=== PATIENT | female | born 2000 | race Caucasian/White ===

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

== ENCOUNTER 2025-07-19 07:36 | Inpatient (IN) ==
--- NOTE | 2025-07-19 07:55 | History & Physical Report ---
Date of Service July 19, 2025 Assessment & Plan (1) Encounter for induction of labor: (2) IUGR (intrauterine growth restriction) affecting care of mother: (3) Carrier of group B Streptococcus: (4) Current every day vaping: (5) Chlamydia infection affecting : Plan Zenobia is a 25 y/o at 38w with NETTA 08/02/25 as determined by LMP who presents today for induction of labor. complicated by vaping use, chlamydia infection (treated) GBS(+), IUGR, and polyhydramnios. Patient does have a history of rapid first labor/delivery 2-3 hours. pitocin ordered allison balloon epidural when desired AROM when indicated IV fluids continuous FHT monitoring - category I penicillin for GBS(+) anticipate . Admission and Anticipated Discharge Date Admission Date: July 19, 2025 History of Present Illness Chief Complaint: induction of labor Primary Care Provider: NO PCP Zenobia is a 25 y/o at 38w with NETTA 08/02/25 as determined by LMP who presents today for induction of labor. complicated by vaping use, chlamydia infection (treated) GBS(+), IUGR, and polyhydramnios. Patient does have a history of rapid first labor/delivery 2-3 hours. Endorses positive movement Denies contractions, leakage of fluid, and vaginal bleeding External FHT monitors used - category I tracing. Moderate variability. OB Labs: Blood Type O Positive 12/31/24 Antibody Screen NEGATIVE 12/31/24 Hgb 11.4 g/dl (12.0-16.0) L 04/29/25 Hct 33.6 % (37.0-47.0) L 04/29/25 MCV 88.2 fL (80.0-100.0) 12/31/24 Plt Count 171 K/uL (130-400) 12/31/24 Rubella IgG Antibody Immune (Immune) 12/31/24 RPR Nonreactive (Nonreactive) 06/30/20 Treponema pallidum Ab Negative (Negative) 04/29/25 Hep Bs Antigen Negative (Negative) 12/31/24 Hepatitis C Antibody Negative (Negative) 12/31/24 HIV 1&2 Ab/P24 Ag 4thGn Negative (Negative) 12/31/24 Glucose 1 Hr 50 gm 86 mg/dl (70-130) 04/29/25 OB Optional Labs: Chlamydia trachomatis RNA Not Detected (NotDetected) 12/31/24 Neisseria gonorrhoeae RNA Not Detected (NotDetected) 12/31/24 Labs Reviewed: declined genetics/cf/sma/afp Allergies Allergy/AdvReac Type Severity Reaction Status Date / Time No Known Allergies Allergy Verified 07/18/25 14:38 Home Medications Medication Instructions Recorded Confirmed Type PNV [id number] 1 tab PO UD 12/17/24 07/18/25 History [ Gummies] Patient History Medical History Varicella vaccination Surgical History History of gynecologic surgery hymenectomy [place] teeth extracted S/P tonsillectomy and adenoidectomy Family History Father Heart murmur Grandmother (Paternal) Heart disease Breast cancer Denies family history of Ovarian cancer Colorectal cancer Social History (Updated 07/19/25 @ 07:54 by Alice Laguna RN) Smoking Status: Never smoker Tobacco Type: E-cigarettes / Vaping Second Hand Exposure: No; Do You Dip or Chew Tobacco: No; Hx Alcohol Use: No Hx Substance Use: No Preferred Language: Armenian Communication Ability: Effective Cullet Crusher Required: No Beliefs That Will Affect Care: None marital status: Single marital status details: Yuri Valdivia(22) [phone] FO Current Living Situation: Family and Significant Other Current Living Situation Comment: Lives with daughter, no pets. current occupational status: employed current occupation: [employer] Feels Safe at Home: Yes Diet: regular Assistive Devices: Glasses Review of Systems Denies fever, chills, sweats Denies shortness of breath, difficulty breathing, chest pain, palpitations, chest pressure. Denies breast pain. Denies dysuria. Denies headache or changes in vision. Physical Exam Physical Exam: General: Alert, oriented. No acute distress. Cardiac: Regular rate and rhythm, no murmurs/rubs/gallops. Respiratory: Clear to auscultation bilaterally a/p, no wheezes/rales/rhonchi. No increased work of breathing. Symmetrical chest rise. No respiratory distress. Abdomen: soft, gravid, normal to inspection Lower Extremities: No lower extremity edema or swelling. No deep calf pain. Wesley's negative bilaterally
[2025-07-19] MEDS ORDERED: OXYTOCIN 30 UNITS/NSS 30 UNITS/500 ML BAG IV PRN ×2 (08:01→16:26)
[2025-07-19] MEDS ORDERED: LIDOCAINE 1% LOCAL 20 ML VIAL INFIL PRN (08:01)
[2025-07-19] MEDS: PENICILLIN GK 6 MU in DEXTROSE 5% 250 ML IV STA (08:43)
[2025-07-19] MEDS: LACTATED RINGER'S 1,000 ML IV PRN (08:43)
[2025-07-19] MEDS: OXYTOCIN 30 UNITS/NSS 30 UNITS/500 ML BAG IV PRN (08:43)
[2025-07-19 09:19] LABS: Hematocrit (blood only) 34.7 % (37.0-47.0); Hemoglobin 12.1 g/dL (12.0-16.0); Mean Corpuscular Hemoglobin 28.5 pg (25.0-34.0); Mean Corpuscular Volume 81.8 fL (80.0-100.0); Platelet Count 250 K/uL (130-400); RDW Standard Deviation 36.1 fL (36.4-46.3); Red Blood Count 4.24 M/uL (4.20-5.40); White Blood Count 7.42 K/ul (4.8-10.8)
[2025-07-19] MEDS: PENICILLIN GK 3 MU in DEXTROSE 5% 100 ML IV SCH (12:29)
--- NOTE | 2025-07-19 16:23 | Delivery Summary ---
Vaginal Delivery Summary Date of Service July 19, 2025 Vaginal Delivery Summary Delivery note the patient was induced for intrauterine growth restriction at 38 weeks initially Sharma bulb was placed in her cervix using sterile technique inserting through the os and inflating to 30 cc. The balloon fell out about 4 hours later penicillin had been started for GBS prophylaxis at this stage artificial rupture of membranes for clear fluid at 4 cm there were some very deep variable decelerations noted soon afterwards but the patient rapidly progressed. We implemented a IV fluid bolus oxygen by facemask and then even a amnio infusion fortunately the cervix dilated quickly and she was able to push over primarily 1 or 2 contractions delivering the baby in occiput anterior position at this stage after delivery of the head there was a double nuchal cord this was loose and then passed over the baby's head gentle traction on the baby live vigorous male . Cord clamped and cut cord gases obtained cord blood obtained placenta removed by gentle traction and expressed IV Pitocin started there was no tearing QBL was 50 mL sponge and instrument counts correct [facility] Vaginal Delivery Charge Delivery Type Details:
[2025-07-19] MEDS ORDERED: HYDROCORTISONE ACETATE 25 MG SUPP PR PRN (16:26)
[2025-07-19] MEDS ORDERED: BENZOCAINE 20% SPRY 85 APPLN/85 GM CAN EXT PRN (16:26)
[2025-07-19 16:39] LABS: Base Excess Cord Arterial Bld -4.4 mEq/L (-9-1.8); CO2 Cord Arterial Blood 39 mmHg (39.1-73.5); HCO3 Cord Arterial Blood 21 mmol/L (19.7-28.5); Oxygen Sat Cord Arterial Blood < 60.0 % (<60); PO2 Cord Arterial Blood 23 mmHg (4.1-31.7); pH Cord Arterial Blood 7.34 (7.1-7.38)
[2025-07-19 16:40] LABS: Base Excess Cord Venous Blood -3.4 mEq/L (-7.7-1.9); Cord Venous Blood PO2 23 mmHg (14.1-43.3); O2 Saturation Cord Venous Bld < 60.0 % (<68)
[2025-07-19] MEDS: DIPHTHER/TETAN/PERTUS Vaccine (Tdap, Adol/Adult) 0.5mL IM ONE (17:00)
[2025-07-19] MEDS: DOCUSATE SODIUM 100 MG CAP PO SCH (20:09)
[2025-07-20] MEDS: IBUPROFEN 600 MG TAB PO PRN (04:10)
--- NOTE | 2025-07-20 06:38 | Obstetrical Progress Note ---
Date of Service July 20, 2025 Assessment & Plan (1) Encounter for induction of labor: (2) IUGR (intrauterine growth restriction) affecting care of mother: (3) Carrier of group B Streptococcus: Plan 25 y/o ppd #1 s/p . complicated by daily vape use, IUGR, GBS(+). Feels well today. Vital signs stable Continue post- care Encourage ambulation and Pain controlled with ibuprofen Hgb stable Consider home discharge today pending baby discharge status due to IUGR. follow up with Dr. Trivedi in 6 weeks. Admission and Anticipated Discharge Date Admission Date: July 19, 2025 Supervising Physician Co-Signing Physician Notes Resident Physician Supervision Note: I interviewed and examined the patient. Discussed with Dr. Gamboa and agree with findings and plan as documented in the note. Any exceptions or clarifications are listed here: [None] Documented By: Sandoval Trivedi MD, FACOG Subjective 25 y/o ppd #1 s/p . complicated by daily vape use, IUGR, GBS(+). Feeling well this morning. No issues overnight. No acute concerns. Ambulation: ambulating normally Voiding: no voiding problems Passing Gas:: Yes Diet Tolerance:: regular diet Lochia:: Small Feeding Type:: breast Current Pain Level: minimal Resting comfortably this AM in NAD. Denies BURGER, CP, SOB, N/V/D, LE pain/swelling. Review of Systems Review of Systems: as above Physical Exam Physical Exam: General: patient resting comfortably, NAD, non-toxic in appearance, A&Ox4, answers questions appropriately. Skin: warm, dry, intact HEENT: atraumatic, normocephalic, anicteric sclera, conjunctiva without inje ction, moist mucus membranes. Heart: clinically well perfused Lungs: equal rise & fall of chest, normal work of breathing, no respiratory distress Abd: +BS, soft, NT/ND, uterine fundus firm at umbilicus Ext: no LE edema or deep calf pain, Wesley's neg. Neuro: no focal neurologic deficits, moving all extremities. Results & Data Vital Signs (Past 12 Hours) Vital Signs Temp Pulse Resp BP Pulse Ox O2 Del Method 07/20/25 04:05 36.8 C 69 18 131/83 98 Room Air 07/20/25 00:00 36.5 C 71 18 127/85 98 Room Air 07/19/25 19:15 36.8 C 85 18 120/82 98 Room Air
[2025-07-20 07:37] VITALS: RESP 16
[2025-07-20 08:42] LABS: Hematocrit (blood only) 32.7 % (37.0-47.0); Hemoglobin 11.1 g/dL (12.0-16.0); Mean Corpuscular Hemoglobin 27.8 pg (25.0-34.0); Mean Corpuscular Volume 81.8 fL (80.0-100.0); Platelet Count 237 K/uL (130-400); RDW Standard Deviation 36.2 fL (36.4-46.3); Red Blood Count 4.00 M/uL (4.20-5.40); White Blood Count 9.32 K/ul (4.8-10.8)
[2025-07-20] MEDS: PRENATAL VITAMIN 1 TAB PO SCH (09:00)
[2025-07-21 00:02] VITALS: O2SAT 98
--- NOTE | 2025-07-21 06:19 | Obstetrical Progress Note ---
Date of Service July 21, 2025 Assessment & Plan (1) Encounter for induction of labor: (2) IUGR (intrauterine growth restriction) affecting care of mother: (3) Carrier of group B Streptococcus: Plan 25 y/o ppd #2 s/p . complicated by daily vape use, IUGR, GBS(+). Feels well today. Vital signs stable Continue post- care Encourage ambulation and Pain controlled with ibuprofen Hgb stable Anticipate home discharge today follow up with Dr. Trivedi in 6 weeks. Admission and Anticipated Discharge Date Admission Date: July 19, 2025 Supervising Physician Co-Signing Physician Notes Resident Physician Supervision Note: I interviewed and examined the patient. Discussed with Dr. Gamboa and agree with findings and plan as documented in the note. Any exceptions or clarifications are listed here: Pt is PPD2 from , doing well, meeting milestones. . VS wnl. Uterus firm at U-1. Plan for DC home today with 6w PPV. Documented By: Tasha Hurt MD Subjective 25 y/o ppd #2 s/p . complicated by daily vape use, IUGR, GBS(+). Feeling well this morning. No issues overnight. No acute concerns. Ambulation: ambulating normally Voiding: no voiding problems Passing Gas:: Yes Diet Tolerance:: regular diet Lochia:: Small Feeding Type:: breast Current Pain Level: minimal Resting comfortably this AM in NAD. Denies BURGER, CP, SOB, N/V/D, LE pain/swelling. Review of Systems Review of Systems: as above Physical Exam Physical Exam: General: patient resting comfortably, NAD, non-toxic in appearance, A&Ox4, answers questions appropriately. Skin: warm, dry, intact HEENT: atraumatic, normocephalic, anicteric sclera, conjunctiva without injection, moist mucus membranes. Heart: clinically well perfused Lungs: equal rise & fall of chest, normal work of breathing, no respiratory distress Abd: +BS, soft, NT/ND, uterine fundus firm at umbilicus Ext: no LE edema or deep calf pain, Wesley's neg. Neuro: no focal neurologic deficits, moving all extremities. Results & Data Vital Signs (Past 12 Hours) Vital Signs Temp Pulse Resp BP Pulse Ox O2 Del Method 07/21/25 00:00 36.4 C L 64 16 126/82 98 Room Air 07/20/25 20:45 36.9 C 75 16 126/84 99 Room Air
[2025-07-21 06:25] LABS: Hematocrit (blood only) 30.8 % (37.0-47.0); Hemoglobin 10.3 g/dL (12.0-16.0)
[2025-07-21 08:09] VITALS: BP 134/84; TEMP 98.1
[2025-07-21] MEDS: ACETAMINOPHEN 325 MG TAB PO PRN (08:34)
[2025-07-21 09:12] VITALS: PULSE 69
--- NOTE | 2025-07-22 07:38 | Coding Query ---
CODING QUERY To promote full compliance with coding requirements relating to patient care, provider participation is requested in all cases of mortarman uncertainty. Please assist us with the question(s) below: Coding Question(s): The H&P documents, "Chlamydia infection affecting ", and is documented only on the H&P. Please specify further below, regarding Chlamydia infection affecting : (X ) Chlamydia infection affecting is Unspecified Chlamydia infection ( ) Chlamydia infection affecting is Specified Chlamydia infection. Please Specify: ( ) Chlamydia infection affecting - Other: Please specify Physician's Response(s): Thank you Zayda Salcedo Principal Diagnosis: "that condition established after study, to be chiefly responsible for occasioning the admission of the patient to the hospital for care." Co-Existing Principal Diagnosis: "when two or more diagnoses equally meet the criteria for principal diagnosis as determined by the circumstances of admission, diagnostic work up, and/or therapy provided, and the Alphabetic Index, Tabular List, or another coding guideline does not provide sequencing direction, any one of the diagnoses may be sequenced first." "When the physician has documented what appears to be a current diagnosis in the body of the record, but has not included the diagnosis in the final diagnostic statement, the physician should be asked whether the diagnosis should be added." (Source Coding [facility] 2 QTR90. p3-4) KATHI
== END 2025-07-21 12:35 | disposition home or self-care (01) | DRG 806 ==
LOC: 4S1 07:36 → 4E2 18:59